=== PATIENT | male | born 1965 | race Caucasian/White ===

== ENCOUNTER 2016-05-14 10:46 | Emergency (ER) | payer OTHER ==
[2016-05-14 10:50] VITALS: BP 144/89; PULSE 108; TEMP 98; BMI 25.1
[2016-05-14] MEDS ORDERED: DIPHTH,PERTUSS(ACELL),TET VAC 0.5 ML VIAL IM ONE (11:09)
[2016-05-14] MEDS ORDERED: AMOX TR/POT CLAV 875MG/125MG TABLETS (FP) PO ONE (11:09)
--- NOTE | 2016-05-14 11:11 | PDOC ---
[id number] DOG BITE Time Seen by Provider: 05/14/16 10:57 History Source: Patient Exam Limitations: No Limitations - History of Present Illness Initial Comments: 51 yo M presents with dog bite to R forearm. He works for [employer], was leaving a package at a door, rang the llamas to notify. The dog was able to open the door and escape, biting his forearm. Patient was cornered by the dog, at which point he contacted the police, who assisted him in getting away. EMS responded, cleaned the wound for him, but recommended that he present to ED for evaluation. His last tetanus booster was in 2007. He denies any swelling, redness, or bleeding. No other injuries. The police were able to take a report and confirm that the dog is up to date on shots. Past History - Past Medical History Allergies/Adverse Reactions: Allergies Allergy/AdvReac Type Severity Reaction Status Date / Time No Known Allergies Allergy Verified 05/14/16 10:47 Home Medications: Ambulatory Orders Amoxicillin/Potassium Clav [Augmentin 875-125 Tablet] 1 each PO BID #14 tablet 05/14/16 Other medical history: DENIES - Psycho/Social/Smoking Cessation Hx Anxiety: No Suicidal Ideation: No Smoking History: Never smoked Hx Alcohol Use: Yes Drug/Substance Use Hx: No Substance Use Type: Alcohol Review of Systems - Review of Systems Able to Perform ROS?: Yes Comments:: GENERAL/CONSTITUTIONAL: No fever or chills. No weakness. MUSCULOSKELETAL: No joint or muscle swelling or pain. No neck or back pain. SKIN: No rash NEUROLOGIC: No headache, vertigo, loss of consciousness, or change in strength/ sensation. HEMATOLOGIC/LYMPHATIC: No anemia, easy bleeding, or history of blood clots. *Physical Exam - Vital Signs Last Vital Signs Temp Pulse Resp BP Pulse Ox 98 F 108 H 18 144/89 100 05/14/16 10:47 05/14/16 10:47 05/14/16 10:47 05/14/16 10:47 05/14/16 10:47 - Physical Exam Comments: GENERAL: Awake, alert, and fully oriented, in no acute distress HEAD: No signs of trauma EXTREMITIES: Normal range of motion, no edema. No clubbing or cyanosis. No cords, erythema, or tenderness NEUROLOGICAL: Cranial nerves II through XII grossly intact. Normal speech, normal gait SKIN: Warm, Dry, normal turgor, no rashes. +Two small abrasions to the R forearm , no surrounding cellulitis. Medical Decision Making - Medical Decision Making Wound was already cleaned by EMS. No active bleeding, no devitalized tissue. Wound was superficial, not requiring sutures. Bactracin and sterile gauze applied. Tdap updated. Rx for augmentin to prevent infection. 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 *DC/Admit/Observation/Transfer Diagnosis at time of Disposition: Dog bite Qualifiers: Encounter type: initial encounter Qualified Code(s): W54.0XXA - Bitten by dog, initial encounter - Discharge Dispostion Disposition: HOME Condition at time of disposition: Stable Admit: No - Prescriptions Prescriptions: Amoxicillin/Potassium Clav [Augmentin 875-125 Tablet] 1 each PO BID #14 tablet - Referrals Referrals: Bry Melton MD [Primary Care Provider] - - Patient Instructions Printed Discharge Instructions: DI for Dog Bite
== END 2016-05-14 11:21 | disposition home or self-care (01) ==
LOC: FER 10:46
PROC: 3E0234Z Introduction of Serum, Toxoid and Vaccine into Muscle, Percutaneous Approach (ICD-10-PCS; principal; 2016-05-14)
DX: S51.851A Open bite of right forearm, initial encounter (principal); W54.0XXA Bitten by dog, initial encounter; Y93.89 Activity, other specified; Y92.89 Other specified places as the place of occurrence of the external cause; Y99.0 Civilian activity done for income or pay
CPT/HCPCS: 99283-25

== ENCOUNTER 2024-03-29 06:24 | Day surgery (SDC) | payer OTHER ==
[2024-03-21 12:10] VITALS: BMI 28.0
[2024-03-29] MEDS ORDERED: ceFAZolin SODIUM 1 GM VIAL ONE ×2 (07:16→07:57)
[2024-03-29] MEDS ORDERED: TETRACAINE 0.5% OPHTH SOLN 2 ML BOTTLE ONE (07:17)
[2024-03-29] MEDS ORDERED: POVIDONE-IODINE 5% OPHTHALMIC PREP 30 ML SOLUTION ONE (07:17)
[2024-03-29] MEDS ORDERED: ERYTHROMYCIN 0.5% OPHTHALMIC OINTMENT 3.5 GM TUBE ONE (07:17)
[2024-03-29] MEDS ORDERED: LIDOCAINE 1%/EPI 1:100000 (20 ML MULTI DOSE VIAL) ONE (07:17)
[2024-03-29] MEDS ORDERED: BUPIVACAINE HCL/PF 0.5% (5MG/ML) 10 ML VIAL ONE (07:17)
[2024-03-29] MEDS ORDERED: PROPOFOL 20 ML ONE ×3 (07:20→08:27)
[2024-03-29] MEDS ORDERED: MIDAZOLAM HCL 2 MG/2 ML SINGLE DOSE VIAL ONE ×3 (07:21→08:29)
[2024-03-29] MEDS ORDERED: ONDANSETRON 4 MG/2 ML VIAL ONE (08:10)
[2024-03-29] MEDS ORDERED: GLYCOPYRROLATE 0.2 MG/1 ML VIAL ONE (08:10)
[2024-03-29] MEDS ORDERED: DEXAMETHASONE SOD PHOSPHATE 4 MG/1 ML VIAL ONE (08:10)
[2024-03-29] MEDS ORDERED: oxyCODONE HCL 5 MG TABLET PO PRN (08:43)
[2024-03-29] MEDS ORDERED: ONDANSETRON 4 MG/2 ML VIAL IVPUSH PRN (08:43)
[2024-03-29] MEDS ORDERED: LACTATED RINGERS SOLUTION 1,000 ML IV SCH (08:45)
[2024-03-29] MEDS: ACETAMINOPHEN 1000 MG/100 ML BAG IVPB ONE (08:49)
[2024-03-29 10:34] VITALS: PULSE 96; TEMP 97.6
[2024-03-29 10:35] VITALS: BP 117/70; RESP 18
== END 2024-03-29 10:55 | disposition home or self-care (01) ==
LOC: FASU 06:24
PROVIDERS: ATTEND Ophthalmology
PROC: 0KX10ZZ Transfer Facial Muscle, Open Approach (ICD-10-PCS; 2024-03-29)
PROC: 08SR0ZZ Reposition Left Lower Eyelid, Open Approach (ICD-10-PCS; principal; 2024-03-29 08:05)
DX: C44.1192 Basal cell carcinoma of skin of left lower eyelid, including canthus (principal); M95.2 Other acquired deformity of head
CPT/HCPCS: 94760; J0131